=== PATIENT | female | born 1990 | race American Indian/Alaskan Native ===

== ENCOUNTER 2017-02-24 13:05 | Emergency (ER) | payer SELFPAY ==
--- NOTE | 2017-02-24 14:44 | Emergency Department Report ---
Entered by SUMMER KEE, acting as scribe for MILTON REYES PA. Chief Complaint: Abdominal Pain Stated Complaint: ABD PAIN/EYES ARE SWOLLEN Time Seen by Provider: 02/24/17 14:15 - HPI History of Present Illness: 26 y/o female presents c/o of eye redness that started yesterday and eye crusting that started this morning. Additional Sx include intermittent abd pain that started one week ago and white/greenish vaginal discharge but pt denies burning during urination, fever, vomiting, SOB and chest pain. - ROS Review of Systems: as noted in HPI. - Exam Vital Signs: Vital Signs 02/24/17 14:04 Temperature 99.1 F Pulse Rate 82 Respiratory 20 Rate Blood Pressure 116/74 O2 Sat by Pulse 100 Oximetry Physical Exam: General: 26-year-old female in no acute distress. Well-developed, well- nourished. CV: Regular rate and rhythm. No murmurs rubs or gallops. Lungs: Clear to auscultation bilaterally. Abdomen: No tenderness to palpation. No guarding or rebound tenderness. Normal bowel sounds. Mini Neuro: Alert and oriented x 3 Eyes: Positive for yellow crusting and conjuctival injection bilaterally, PERRL MSE screening note: Focused history and physical exam performed. Due to findings the following was ordered: ED Disposition for MSE Condition: Stable Instructions: Abdominal Pain (ED) This documentation as recorded by the scribe,SUMMER KEE,accurately reflects the service I personally performed and the decisions made by ,MILTON REYES PA.
[2017-02-24 15:47] LABS: Alanine Aminotransferase 8 units/L (7-56); Albumin/Globulin Ratio 1.3 %; Alkaline Phosphatase 92 units/L (35-129); Anion Gap 15 mmol/L; Bilirubin,Total 0.2 mg/dL (0.1-1.2); Blood Urea Nitrogen 9 mg/dL (7-17); Calcium 9.1 mg/dL (8.4-10.2); Carbon Dioxide 25 mmol/L (22-30); Chloride 102.8 mmol/L (98-107); Glucose 93 mg/dL (65-100); Lipase 29 units/L (13-60); Potassium 4.3 mmol/L (3.6-5.0); Sodium 138 mmol/L (137-145); Total Protein 7.2 g/dL (6.3-8.2)
[2017-02-24 15:52] LABS: Basophils % (Auto) 0.7 % (0.0-1.8); Eosinophils % (Auto) 2.4 % (0.0-4.3); Hemoglobin 12.5 gm/dl (10.1-14.3); Mean Corpuscular HGB Conc 32 % (30-34); Mean Corpuscular Volume 75 fl (79-97); Platelet Count 294 K/mm3 (140-440); Red Blood Count 5.24 M/mm3 (3.65-5.03); Red Cell Distribution Width 14.8 % (13.2-15.2); White Blood Count 7.5 K/mm3 (4.5-11.0)
[2017-02-24 15:57] LABS: Mean Corpuscular Hemoglobin 24 pg (28-32)
[2017-02-24 18:07] LABS: Bilirubin,Urine NEG (Negative); Blood,Urine NEG (Negative); Ketones,Urine NEG (Negative); Leukocyte Esterase,Urine TR (Negative); Mucus,Urine FEW /HPF; Nitrite,Urine NEG (Negative); Protein,Urine <15 mg/dL mg/dL (Negative); Urobilinogen,Urine < 2.0 mg/dL (<2.0)
--- NOTE | 2017-02-24 20:08 | Emergency Department Report ---
HPI - General Chief Complaint: Abdominal Pain Time Seen by Provider: 02/24/17 14:35 - HPI HPI: This is a 26-year-old -[place] female who drove herself in to be seen with 2 complaints. First, the patient is been having a 1 week history of lower abdominal and/or pelvic discomfort. It is associated with some intermittent discharge that is "runny" and sometimes green in appearance. She denies any history of STD or bacterial vaginosis. She denies any fever, dysuria, vaginal bleeding, back pain, nausea or vomiting. She is not taken anything for her abdominal discomfort prior to presentation. Her second complaint is that she woke up this morning with some red itchy eyes. She feels like they are swollen and the eyelids were swollen shut with some crusting upon awakening today. She tried some Zyrtec for these symptoms without much relief. She does have a history of some environmental allergies. She denies any eye pain or any blurry vision. ED Past Medical Hx - Past Medical History Previous Medical History?: Yes Hx Hypertension: Yes (during ) - Surgical History Past Surgical History?: Yes Hx Appendectomy: Yes - Social History Smoking Status: Never Smoker Substance Use Type: Alcohol - Medications Home Medications: Home Medications Medication Instructions Recorded Confirmed Last Taken Type Cephalexin [Keflex] 500 mg PO TID #15 capsule 02/18/15 Unknown Rx HYDROcodone/APAP 5-325 [Ransom 1 each PO Q6HR PRN #12 tablet 02/18/15 Unknown Rx 5/325] Tobramycin 0.3% [Tobrex] 1 drop OU Q6H #1 bottle 02/25/17 Unknown Rx metroNIDAZOLE [Flagyl] 500 mg PO Q12HR #14 tab 02/25/17 Unknown Rx ED Review of Systems ROS: Stated complaint: ABD PAIN/EYES ARE SWOLLEN Other details as noted in HPI Comment: All other systems reviewed and negative Constitutional: denies: chills, fever Eyes: eye discharge, other (eye redness) ENT: denies: ear pain, throat pain Respiratory: denies: cough, shortness of breath, wheezing Cardiovascular: denies: chest pain, palpitations Gastrointestinal: abdominal pain, nausea. denies: vomiting Genitourinary: discharge. denies: dysuria Musculoskeletal: denies: back pain, joint swelling, arthralgia Skin: denies: rash, lesions Neurological: denies: headache, weakness, paresthesias Physical Exam - Physical Exam Vital Signs: Vital Signs 02/24/17 02/24/17 02/24/17 14:04 18:53 19:00 Temperature 99.1 F 98.6 F Pulse Rate 82 88 Respiratory 20 16 Rate Blood Pressure 116/74 Blood Pressure 108/71 [Left] O2 Sat by Pulse 100 100 100 Oximetry 02/24/17 19:01 Temperature Pulse Rate Respiratory 16 Rate Blood Pressure Blood Pressure [Left] O2 Sat by Pulse 100 Oximetry Physical Exam: GENERAL: The patient is well-developed well-nourished. HEENT: Normocephalic. Atraumatic. Extraocular motions are intact. Patient has moist mucous membranes. Pupils equal reactive to light bilaterally. The bilateral conjunctivae are injected. No current discharge, crusting or matting seen. NECK: Supple. Trachea is midline. CHEST/LUNGS: Clear to auscultation. There is no respiratory distress noted. HEART/CARDIOVASCULAR: Regular. There is no tachycardia. There is no gallop rub or murmur. ABDOMEN: Abdomen is soft, nontender. Patient has normal bowel sounds. There is no abdominal distention. SKIN: There is no rash. There is no edema. There is no diaphoresis. NEURO: The patient is awake, alert, and oriented. The patient is cooperative. The patient has no focal neurologic deficits. The patient has normal speech. MUSCULOSKELETAL: There is no tenderness or deformity. There is no limitation range of motion. There is no evidence of acute injury. : There is some slightly malodorous thin white discharge seen in the vaginal vault. No obvious lesions seen. ED Course Vital Signs 02/24/17 02/24/17 02/24/17 14:04 18:53 19:00 Temperature 99.1 F 98.6 F Pulse Rate 82 88 Respiratory 20 16 Rate Blood Pressure 116/74 Blood Pressure 108/71 [Left] O2 Sat by Pulse 100 100 100 Oximetry 02/24/17 19:01 Temperature Pulse Rate Respiratory 16 Rate Blood Pressure Blood Pressure [Left] O2 Sat by Pulse 100 Oximetry ED Medical Decision Making - Lab Data Result diagrams: 02/24/17 15:21 02/24/17 15:21 - Radiology Data Radiology results: report reviewed, image reviewed interpreted by me: Abdominal x-ray shows some stool throughout the intestines and some nonspecific nonobstructive bowel gas but no signs of obstruction. Transvaginal/pelvic Doppler ultrasound is a normal examination. - Medical Decision Making 26-year-old female presents the emergency department with some lower abdominal/ pelvic discomfort as well as some vaginal discharge. Vital signs are stable throughout her ED course including being afebrile. Patient's labs do not show any leukocytosis, electrolyte abnormalities, renal insufficiency, glucose abnormalities. She has normal belly labs including bilirubin, lipase and LFTs. Urinalysis does not show any urinary tract infection and the patient is not . A wet prep was done that came back positive for bacterial vaginosis. The patient will be treated with Flagyl. Physical exam the patient has what appears to be bilateral conjunctivitis. Unknown if it is allergic versus viral versus bacterial but with the complaint of discharge and crusting this morning, the patient will be started on Tobrex. She'll be given referrals for primary care, [facility] [employer] [facility] and ophthalmology. She will return to the ER with any worsening of her symptoms or any acute distress. - Differential Diagnosis conjunctivitis, , UTI, BV, Critical Care Time: No Critical care attestation.: If time is entered above; I have spent that time in minutes in the direct care of this critically ill patient, excluding procedure time. ED Disposition Clinical Impression: Bacterial vaginosis Abdominal pain Qualifiers: Abdominal location: lower abdomen, unspecified Qualified Code(s): R10.30 - Lower abdominal pain, unspecified Conjunctivitis Qualifiers: Conjunctivitis type: unspecified Laterality: bilateral Qualified Code(s): H10.9 - Unspecified conjunctivitis Disposition: DISCHARGED TO HOME OR SELFCARE Is pt being admited?: No Condition: Stable Instructions: Abdominal Pain (ED), Bacterial Vaginosis (ED), Conjunctivitis (ED ) Additional Instructions: Please follow-up with a primary care doctor in the next few days. It is also recommended that he follow-up with a [facility] and lining mechanic. Return to the ER with any worsening of her symptoms or any acute distress. You have been started on a antibiotics all Flagyl for your bacterial vaginosis. This medication has a significant and terrible reaction/side effect to alcohol. Therefore he should not drink any alcohol during the duration of your antibiotics and even for 2 days afterwards. Prescriptions: metroNIDAZOLE [Flagyl] 500 mg PO Q12HR #14 tab Tobramycin 0.3% [Tobrex] 1 drop OU Q6H #1 bottle Referrals: PRIMARY CARE, [Primary Care Provider] - 3-5 Days [facility] [Provider Group] - 3-5 Days [facility] [Outside] - 3-5 Days TANA HINES MD [Staff Physician] - 3-5 Days Forms: STI Treatment and Prevention Time of Disposition: 00:35
--- NOTE | 2017-02-24 21:18 | Ultrasound Report ---
FINAL REPORT EXAM: US PELVIS DUPLEX DOPPLER COMP HISTORY: pelvic pain . LMP 01/28/2017. Right lower quadrant and left lower quadrant abdominal and pelvic pain. TECHNIQUE: Ultrasound of the pelvis using transabdominal and transvaginal imaging PRIORS: None. FINDINGS: Uterus: Uterus is elongated in size, retroverted in position, and normal and homogeneous in echogenicity without focal fibroid formation. The uterus measures 8.0 x 5.1 x 6.6 cm in size. Endometrial stripe: Normal and uniform in thickness measuring 12.7 mm. Ovaries: Both ovaries appear normal in size and echogenicity with normal blood flow bilaterally. The right ovary measures 3.1 x 1.9 x 3.1 cm and the left ovary measures 3.0 x 2.3 x 2.1 cm in size. Other: There is no evidence for solid adnexal mass is seen. There is minimal fluid in the cul-de-sac which is nonspecific. IMPRESSION: Negative pelvic ultrasound.
--- NOTE | 2017-02-24 21:19 | Ultrasound Report ---
FINAL REPORT EXAM: US TRANSVAGINAL HISTORY: pelvic pain . LMP 01/28/2017. Right lower quadrant and left lower quadrant abdominal and pelvic pain. TECHNIQUE: Ultrasound of the pelvis using transabdominal and transvaginal imaging PRIORS: None. FINDINGS: Uterus: Uterus is elongated in size, retroverted in position, and normal and homogeneous in echogenicity without focal fibroid formation. The uterus measures 8.0 x 5.1 x 6.6 cm in size. Endometrial stripe: Normal and uniform in thickness measuring 12.7 mm. Ovaries: Both ovaries appear normal in size and echogenicity with normal blood flow bilaterally. The right ovary measures 3.1 x 1.9 x 3.1 cm and the left ovary measures 3.0 x 2.3 x 2.1 cm in size. Involuting follicular cyst in the left ovary is seen. Other: There is no evidence for solid adnexal mass is seen. There is minimal fluid in the cul-de-sac which is nonspecific. IMPRESSION: Negative pelvic ultrasound.
[2017-02-24] MEDS ORDERED: TORADOL IM ONE (23:22)
[2017-02-25] MEDS ORDERED: FLAGYL PO ONE (00:30)
[2017-02-25 00:36] VITALS: BP 120/68
--- NOTE | 2017-02-25 10:19 | XRay Report ---
ABDOMINAL SERIES THREE VIEWS: 02/24/17 13:05:00 CLINICAL: Abdominal pain. FINDINGS: Supine and upright views demonstrate a normal bowel gas pattern with a moderately large volume of stool in the colon and rectum. No distended small bowel and no air-fluid levels. No pneumoperitoneum. No mass or suspicious calcifications. The bones and soft tissues are normal. IMPRESSION: Negative abdomen.
== END 2017-02-25 00:50 | disposition home or self-care (01) ==
LOC: ED 13:05
DX: N76.0 Acute vaginitis (principal); R10.30 Lower abdominal pain, unspecified; H10.9 Unspecified conjunctivitis; Z91.018 Allergy to other foods; Z88.8 Allergy status to other drugs, medicaments and biological substances
CPT/HCPCS: 36415; 74020; 76830; 80053; 81001; 81025; 82150; 83690; 85025; 87210; 87591; 93975; 96372; 99285; J1885

== ENCOUNTER 2020-04-19 16:46 | Outpatient (CLI) | payer MEDICAID ==
[2020-04-19 18:33] VITALS: BP 128/69
[2020-04-19 18:38] LABS: Hematocrit 34.5 % (30.3-42.9); Hemoglobin 11.4 gm/dl (10.1-14.3); Mean Corpuscular HGB Conc 33 % (30-34); Mean Corpuscular Volume 73 fl (79-97); Platelet Count 223 K/mm3 (140-440); Red Blood Count 4.74 M/mm3 (3.65-5.03); Red Cell Distribution Width 15.8 % (13.2-15.2)
[2020-04-19] MEDS ORDERED: LACTATED RINGERS 500 ML IV ONE (18:49)
[2020-04-19 19:00] LABS: Alanine Aminotransferase 7 units/L (7-56); BUN/Creatinine Ratio 12; Blood Urea Nitrogen 6 mg/dL (7-17); Hemolysis Index 10
[2020-04-19] MEDS ORDERED: hydrOXYzine PAMOATE 25 MG CAP PO ONE (19:59)
[2020-04-19 20:16] LABS: Bilirubin,Urine NEG (Negative); Blood,Urine NEG (Negative); Color,Urine Yellow (Yellow); Protein,Urine <15 mg/dL mg/dL (Negative); RBC,Urine < 1.0 /HPF (0.0-6.0)
[2020-04-19 20:29] LABS: Amphetamine Screen,Urine PRESUMPTIVE NEGATIVE; Benzodiazepines Screen,Urine PRESUMPTIVE NEGATIVE; Cannabinoid Screen,Urine PRESUMPTIVE NEGATIVE; Cocaine Screen,Urine PRESUMPTIVE NEGATIVE; Methadone Screen,Urine PRESUMPTIVE NEGATIVE; Opiate Screen,Urine PRESUMPTIVE NEGATIVE
== END 2020-04-19 20:56 | disposition home or self-care (01) ==
LOC: TRG 16:46 → APU 16:52 → TRG 20:56
PROVIDERS: ATTEND Obstetrics & Gynecology
DX: O26.893 Other specified pregnancy related conditions, third trimester (principal); N28.1 Cyst of kidney, acquired; Z3A.33 33 weeks gestation of pregnancy
CPT/HCPCS: 36415; 59025; 76700; 76815; 80053; 80307; 81001; 85027; Q0177